=== PATIENT | male | born 1990 | race Caucasian/White ===

== ENCOUNTER 2023-03-23 13:38 | Emergency (ER) | payer BC, MEDICAID ==
[2023-03-23] MEDS ORDERED: Amoxicillin/Clavulanate K 875-125 MG Tab PO ONE ×2 (13:39→14:20)
[2023-03-23] MEDS ORDERED: Ketorolac 30 MG/ML SDV IM ONE (14:19)
[2023-03-23] MEDS ORDERED: Acetaminophen 500 MG Tab PO ONE (14:20)
[2023-03-23 16:28] VITALS: BP 122/82; PULSE 62
== END 2023-03-23 16:18 ==
LOC: FB.ED 13:38
DX: K04.7 Periapical abscess without sinus (principal); L03.211 Cellulitis of face; Z87.891 Personal history of nicotine dependence; Z79.899 Other long term (current) drug therapy
CPT/HCPCS: 96372; 99282; A9270-GY; J1885